=== PATIENT | female | born 1990 | race African-American/Black ===

== ENCOUNTER 2017-05-29 17:46 | Emergency (ER) | payer BC ==
[~2017-05-29] VITALS: Ht 152.4 cm; Wt 66.0 kg
[2017-05-29 17:51] VITALS: BP 136/93
== END 2017-05-29 21:00 | disposition left against medical advice (07) ==
LOC: ER 18:03
DX: R07.9 Chest pain, unspecified (principal); Z53.21 Procedure and treatment not carried out due to patient leaving prior to being seen by health care provider

== ENCOUNTER 2018-10-29 10:31 | Emergency (ER) | payer BC ==
[~2018-10-29] VITALS: Ht 154.9 cm; Wt 66.0 kg
[2018-10-29 10:52] VITALS: BP 109/65
== END 2018-10-29 17:19 | disposition left against medical advice (07) ==
LOC: ER 10:31
DX: Z53.21 Procedure and treatment not carried out due to patient leaving prior to being seen by health care provider (principal); I10 Essential (primary) hypertension; F17.200 Nicotine dependence, unspecified, uncomplicated

== ENCOUNTER 2018-12-23 15:55 | Emergency (ER) | payer BC ==
[~2018-12-23] VITALS: Ht 167.6 cm; Wt 60.0 kg
[2018-12-23 16:05] VITALS: BP 111/70
== END 2018-12-23 20:00 | disposition left against medical advice (07) ==
LOC: ER 15:55
DX: R10.9 Unspecified abdominal pain (principal); Z53.21 Procedure and treatment not carried out due to patient leaving prior to being seen by health care provider